=== PATIENT | female | born 1985 | race Hispanic/Latino ===

== ENCOUNTER 2017-12-02 20:45 | Emergency (ER) | payer MEDICAID, OTHER ==
[~2017-12-02 20:45] MED LIST: METHY250 PO
[2017-12-02 21:20] LABS: APPEARANCE,URINE Clear (CLEAR); BILIRUBIN,URINE Negative (NEGATIVE); COLOR,URINE Yellow (YELLOW); GLUCOSE, URINE (UA) Negative (NEGATIVE); KETONES,URINE Trace mg/dL (NEGATIVE); LEUKOCYTE ESTERASE ,URINE Large (NEGATIVE); NITRATE,URINE Negative (NEGATIVE); OCCULT BLOOD,URINE Trace (NEGATIVE); PH,URINE 7.5 (5.0-8.0); PROTEIN,URINE Negative (NEGATIVE); UROBILINOGEN,URINE 0.2 mg/dL (0.2-1.0)
[2017-12-02 21:21] LABS: BASOPHILS % (AUTO) 1.2 % (0.0-5.0); EOSINOPHILS % (AUTO) 1.4 % (0.0-8.0); HEMATOCRIT 35.7 % (36-48); LYMPHOCYTES % (AUTO) 24.6 % (21.0-51.0); MEAN CORPUSCULAR HEMOGLOBIN 23.9 pg (27.0-33.0); MEAN CORPUSCULAR HGB CONC 32.8 g/dL (32.0-36.0); MONOCYTES % (AUTO) 4.9 % (3.0-13.0); NEUTROPHILS % (AUTO) 67.9 % (40.0-77.0); PLATELET COUNT (AUTO) 302 K/uL (130-400); RED BLOOD CELL COUNT(AUTO) 4.89 MIL/uL (4.00-5.50); RED CELL DISTRIBUTION WIDTH 17.4 % (11.0-15.5); WHITE BLOOD COUNT (AUTO) 7.9 K/uL (4.8-10.8)
[2017-12-02 21:29] LABS: HCG,QUAL RESULT NEGATIVE (NEGATIVE)
[2017-12-02] MEDS ORDERED: HYDRALAZINE HCL 20 MG/ML VIAL ONE (21:31)
[2017-12-02 21:41] LABS: ALBUMIN 3.9 g/dL (3.5-5.0); BILIRUBIN,TOTAL 0.4 mg/dL (0.2-1.0); CREATININE 0.8 mg/dL (0.5-1.5); TOTAL PROTEIN, SERUM 7.6 g/dL (6.0-8.3)
[2017-12-02 21:53] LABS: POTASSIUM 2.8 mmol/L (3.5-5.1)
[2017-12-02 21:58] LABS: BACTERIA,URINE Rare /HPF (None Seen); RBC,URINE 0-1 /HPF (0-1)
[2017-12-02] MEDS ORDERED: LISINOPRIL 5 MG TABLET ONE (22:05)
[2017-12-02] MEDS ORDERED: AMLODIPINE BESYLATE 5 MG TAB PO ONE (22:05)
[2017-12-02] MEDS ORDERED: POTASSIUM BICARB/CIT AC 25 MEQ TABLET.EFF ONE (22:15)
== END 2017-12-03 00:22 | disposition home or self-care (01) ==
LOC: EDH 20:45
DX: I16.0 Hypertensive urgency (principal); E87.6 Hypokalemia; Z91.19 Patient's noncompliance with other medical treatment and regimen
CPT/HCPCS: 36415; 71045; 80053; 81001; 81025; 82550; 83735; 84484; 85025; 93005; 96374; 99285; J0360

== ENCOUNTER 2018-07-26 05:25 | Observation (INO) | payer MEDICAID ==
[2018-07-25 13:34] VITALS: BP 143/87
[2018-07-25 13:41] LABS: BASOPHILS % (AUTO) 0.9 % (0.0-5.0); EOSINOPHILS % (AUTO) 1.2 % (0.0-8.0); HEMATOCRIT 40.7 % (36-48); LYMPHOCYTES % (AUTO) 28.3 % (21.0-51.0); MEAN CORPUSCULAR HEMOGLOBIN 27.6 pg (27.0-33.0); MEAN CORPUSCULAR HGB CONC 32.9 g/dL (32.0-36.0); MEAN CORPUSCULAR VOLUME 83.9 fL (79-99); MONOCYTES % (AUTO) 5.2 % (3.0-13.0); NEUTROPHILS % (AUTO) 64.4 % (40.0-77.0); PLATELET COUNT (AUTO) 274 K/uL (130-400); RED BLOOD CELL COUNT(AUTO) 4.85 MIL/uL (4.00-5.50); RED CELL DISTRIBUTION WIDTH 14.9 % (11.0-15.5); WHITE BLOOD COUNT (AUTO) 8.9 K/uL (4.8-10.8)
[2018-07-26] VITALS (20 sets, daily range): BP systolic 119–163; BP diastolic 70–106
[~2018-07-26] VITALS: Ht 157.5 cm; Wt 108.6 kg
[2018-07-26] MEDS: CEFAZOLIN SODIUM 1 GM VIAL IVP SCH ×2 (05:00→07:20)
[~2018-07-26 05:25] MED LIST changes: +AMLO-128 PO; +CHLO25TA3 PO; +CHOL50004 PO; +DOCU100T PO; -METHY250 PO; +[UNRECOGNIZED DRUG - OTHER] PO
[2018-07-26] MEDS ORDERED: LACTATED RINGERS 1000ML 1,000 ML IV ONE (06:18)
[2018-07-26] MEDS ORDERED: FAMOTIDINE/PF 20 MG/2 ML VIAL IV ONE (06:34)
[2018-07-26] MEDS ORDERED: PROPOFOL 10 MG/ML 20ML VIAL IV ONE (06:36)
[2018-07-26] MEDS ORDERED: DEXAMETHASONE SOD PHOSPHATE 10MG/ML 1ML VIAL ONE (06:36)
[2018-07-26] MEDS ORDERED: ROCURONIUM 10MG/1ML SYR 10 MG/ML ML ONE (06:36)
[2018-07-26] MEDS ORDERED: NEOSTIGMINE 5MG/5ML SYR IV ONE (06:36)
[2018-07-26] MEDS ORDERED: LIDOCAINE PF 2% 5ML ABBOJECT ONE (06:36)
[2018-07-26] MEDS ORDERED: GLYCOPYRROLATE 1 MG/5 ML SYRINGE ONE (06:36)
[2018-07-26] MEDS ORDERED: ONDANSETRON HCL 4 MG/2 ML VIAL ONE (06:36)
[2018-07-26] MEDS ORDERED: MIDAZOLAM HCL 1 MG/ML 2ML VIAL ONE (06:36)
[2018-07-26] MEDS ORDERED: FENTANYL CITRATE PF 50 MCG/1 ML 2ML VIAL ONE (06:37)
[2018-07-26] MEDS ORDERED: MEPERIDINE-PF 25 MG/ML SYG ONE ×2 (08:44→08:56)
[2018-07-26] MEDS ORDERED: PROMETHAZINE HCL 25 MG/ML 1ML AMPULE IM ONE (08:56)
[2018-07-26] MEDS ORDERED: IBUPROFEN 600 MG TABLET PO PRN (10:00)
[2018-07-26] MEDS ORDERED: BISACODYL 10 MG SUPP.RECT RC PRN (10:00)
[2018-07-26] MEDS ORDERED: DOCUSATE SODIUM 100 MG CAP PO PRN (10:00)
[2018-07-26] MEDS ORDERED: PROMETHAZINE HCL 25 MG/ML 1ML AMPULE IM PRN (10:00)
[2018-07-26] MEDS ORDERED: SIMETHICONE 80 MG TAB.CHEW PO PRN (10:00)
[2018-07-26] MEDS: DEXTROSE 5 %-0.45 % NACL 1,000 ML IV PRN ×2 (10:06→17:45)
[2018-07-26] MEDS: PROMETHAZINE HCL 25 MG/ML 1ML AMPULE IM PRN ×2 (10:21→14:22)
[2018-07-26] MEDS: MEPERIDINE-PF 75 MG/ML SYG IM PRN ×2 (10:21→14:22)
[2018-07-26] MEDS: ACETAMINOPHEN-CODEINE 300/30MG TAB PO PRN ×2 (12:40→17:38)
[2018-07-27] MEDS: DEXTROSE 5 %-0.45 % NACL 1,000 ML IV PRN (00:48)
[2018-07-27 01:18] VITALS: BP 130/81
[2018-07-27 04:25] VITALS: BP 117/67
[2018-07-27] MEDS: ACETAMINOPHEN-CODEINE 300/30MG TAB PO PRN (04:58)
[2018-07-27 05:25] LABS: HEMATOCRIT 40.4 % (36-48); MEAN CORPUSCULAR HEMOGLOBIN 27.9 pg (27.0-33.0); MEAN CORPUSCULAR HGB CONC 33.1 g/dL (32.0-36.0); MEAN CORPUSCULAR VOLUME 84.2 fL (79-99); PLATELET COUNT (AUTO) 260 K/uL (130-400); RED CELL DISTRIBUTION WIDTH 14.9 % (11.0-15.5)
[2018-07-27 08:07] VITALS: BP 146/90
[2018-07-27 11:52] VITALS: BP 142/78
== END 2018-07-27 13:50 | disposition home or self-care (01) ==
LOC: DAH 05:25 → WSH 05:26
PROVIDERS: ADMIT Obstetrics & Gynecology; ATTEND Obstetrics & Gynecology
DX: N92.1 Excessive and frequent menstruation with irregular cycle (principal); D25.9 Leiomyoma of uterus, unspecified; D64.9 Anemia, unspecified; E66.9 Obesity, unspecified; N83.202 Unspecified ovarian cyst, left side; N89.5 Stricture and atresia of vagina
CPT/HCPCS: 36415 ×2; 58291; 58294; 84702; 85025; 85027; 86850; 86900; 86901; 88305; 88307; 96372 ×2; A4218; A4351; A4510; A4600; A4606; A4930; G0378 ×32; J0690; J1100; J2001; J2175 ×4; J2250; J2405; J2550 ×3; J2704; J2710; J3010; J3490 ×2; J7030; J7120

== ENCOUNTER 2021-01-28 20:40 | Emergency (ER) | payer MEDICAID ==
[~2021-01-28 20:40] MED LIST changes: -AMLO-128 PO; +AMLO-97 PO
[2021-01-28] MEDS ORDERED: ACETAMINOPHEN EXTRA STRENGTH 500 MG TABLET ONE (21:05)
[2021-01-28] MEDS ORDERED: CLINDAMYCIN HCL 150 MG CAP ONE (21:05)
== END 2021-01-28 21:12 | disposition home or self-care (01) ==
LOC: EDH 20:40
DX: B00.2 Herpesviral gingivostomatitis and pharyngotonsillitis (principal); K05.10 Chronic gingivitis, plaque induced; I10 Essential (primary) hypertension; Z90.710 Acquired absence of both cervix and uterus; Z79.899 Other long term (current) drug therapy

== ENCOUNTER 2022-02-14 11:35 | Emergency (ER) | payer MEDICAID ==
[~2022-02-14] VITALS: Ht 157.5 cm; Wt 111.1 kg
[~2022-02-14 11:35] MED LIST changes: +AMLO-142 PO; -AMLO-97 PO
[2022-02-14 12:28] LABS: EOSINOPHILS % (AUTO) 0.4 % (0.0-8.0); HEMATOCRIT 41.3 % (36-48); LYMPHOCYTES % (AUTO) 14.4 % (21.0-51.0); MEAN CORPUSCULAR HEMOGLOBIN 28.5 pg (27.0-33.0); MEAN CORPUSCULAR HGB CONC 33.9 g/dL (32.0-36.0); MEAN CORPUSCULAR VOLUME 83.9 fL (79-99); PLATELET COUNT (AUTO) 236 K/uL (130-400); RED BLOOD CELL COUNT(AUTO) 4.92 MIL/uL (4.00-5.50); RED CELL DISTRIBUTION WIDTH 12.6 % (11.0-15.5); WHITE BLOOD COUNT (AUTO) 5.1 K/uL (4.8-10.8)
[2022-02-14] MEDS ORDERED: DiphenhydrAMINE HCL 50 MG/ML VIAL IV ONE (12:30)
[2022-02-14] MEDS ORDERED: PROCHLORPERAZINE EDISYLATE 5 MG/ML 2 ML VIAL IVP ONE (12:30)
[2022-02-14] MEDS ORDERED: 0.9%NACL 1000ML 1,000 ML IV ONE (12:30)
[2022-02-14] MEDS ORDERED: PROCHLORPERAZINE 10MG/2ML INJ ONE (12:38)
[2022-02-14 12:47] LABS: ALBUMIN 4.2 g/dL (3.5-5.0); BILIRUBIN,TOTAL 0.3 mg/dL (0.2-1.0); CREATININE 0.8 mg/dL (0.5-1.5)
[2022-02-14 12:54] LABS: POTASSIUM 2.5 mmol/L (3.5-5.1)
[2022-02-14 13:19] LABS: APPEARANCE,URINE Clear (CLEAR); BILIRUBIN,URINE Negative (NEGATIVE); COLOR,URINE Yellow (YELLOW); GLUCOSE, URINE (UA) Negative (NEGATIVE); KETONES,URINE Negative (NEGATIVE); LEUKOCYTE ESTERASE ,URINE Negative (NEGATIVE); NITRATE,URINE Negative (NEGATIVE); OCCULT BLOOD,URINE Negative (NEGATIVE); PH,URINE 7.5 (5.0-8.0); PROTEIN,URINE Negative (NEGATIVE); UROBILINOGEN,URINE 0.2 mg/dL (0.2-1.0)
[2022-02-14 13:23] LABS: HCG,QUAL RESULT NEGATIVE (NEGATIVE)
[2022-02-14] MEDS ORDERED: POTASSIUM BICARB/CIT AC 25 MEQ TABLET.EFF ONE (13:27)
[2022-02-14] MEDS ORDERED: POTASSIUM BICARB/CIT AC 25 MEQ TABLET.EFF PO ONE (13:30)
[2022-02-14 14:17] VITALS: BP 126/77
== END 2022-02-14 14:25 | disposition home or self-care (01) ==
LOC: EDH 11:35
DX: G43.909 Migraine, unspecified, not intractable, without status migrainosus (principal); E87.6 Hypokalemia; I10 Essential (primary) hypertension; Z98.890 Other specified postprocedural states; Z79.899 Other long term (current) drug therapy
CPT/HCPCS: 36415; 80053; 81003; 81025; 83735; 85025; 96361; 96374; 96375; 99284; J0780; J1200; J7030

== ENCOUNTER 2025-08-26 16:28 | Emergency (ER) | payer SELFPAY ==
[~2025-08-26] VITALS: Ht 160 cm; Wt 97.5 kg
[~2025-08-26 16:28] MED LIST changes: +AMLO1CAP87 PO
[2025-08-26] MEDS ORDERED: AMOX1TAB16 PO (17:32)
--- NOTE | 2025-08-26 17:33 | ERN ---
ED Note History of Present Illness Stated Complaint: RT DENTAL PAIN Chief Complaint: Tooth Ache/Pain Time Seen by MD: 16:34 Time Seen by Midlevel: 16:36 Dictation: 40-year-old female coming in with complaints of right lower and upper molar pain. Patient states it has been going on for the last couple of months however the last two weeks patient states the pain is worse. Denies fever, nausea and vomiting. Allergies: Coded Allergies: No Known Drug Allergies (Unverified Allergy, Unknown, 06/08/17) Home Meds Active Scripts Amlodipine Besylate/Benazepril (Amlodipine-Benazepril 2.5-10) 2.5 Mg-10 Mg Capsule, 1 CAP PO DAILY for 30 Days, #30 CAP 0 Refills Prov:CARLOS VALERA 09/04/24 Reported Medications [Herbal Life Line] No Conflict Check, 1 TAB PO HS 07/25/18 [Herbal Life Line] No Conflict Check, 2 TAB PO DAILY 07/25/18 Docusate Sodium (Docusate Sodium) 100 Mg Tablet, 100 MG PO DAILY, TAB 07/25/18 Amlodipine Besylate/Benazepril (Amlodipine-Benazepril 10-40 mg) 1 Each Capsule, 1 EACH PO DAILY, CAP 07/25/18 Cholecalciferol (Vitamin D3) 5,000 Unit Capsule, 5000 UNIT PO NOON, CAP 07/25/18 Chlorthalidone (Chlorthalidone) 25 Mg Tablet, 25 MG PO NOON, TAB 07/25/18 Past Medical History Past Medical History: Hypertension Surgical History: Hysterectomy Review of System Dictation Constitutional: Negative for fever,chills, and weight loss Eyes: Negative for injury, pain,redness, and discharge ENT: Negative for injury,pain or swelling complaining of right upper and lower molar pain Cardiovascular: Negative for chest pain, palpitations, and edema Respiratory: Negative for shortness of breath, cough, and wheezing, Abdomen/GI: Negative for abdominal pain, nausea, vomiting, diarrhea, and constipation Back: Negative for injury and pain : Negative for injury, bleeding and discharge MS/Extremity: Negative for injury and deformity Skin: Negative for rash, and discoloration Neuro: Negative for headache, weakness, numbness, tingling, and seizure Psych: Negative for suicide ideation, homicidal ideation, and hallucinations Review of Systems: was completed Initial Vital Sign VS Vital Signs Date Time Temp Pulse Resp B/P (MAP) Pulse Ox O2 Delivery O2 Flow Rate FiO2 08/26/25 16:32 98.4 88 18 265/146 99 Room Air 0 Physical Exam Dictation General: awake, alert, NAD Head/Face: Normocephalic, atraumatic Eyes: PERRL, EOMI, vision at baseline ENT: oral cavity clear, TMs clear, no signs of infection, there is severe tooth take on the right 2nd to the last molar has been with cracked to no obvious signs of any tooth avulsion or abscess. Old filings noted Neck: Trachea midline, supple, no nuchal rigidity Cardiovascular: RRR, normal S1/S2, No MRGs, no JVD Respiratory: CTAB, no respiratory distress, No rales or wheezes Abdomen: Soft, non-tender, non-distended, normal bowel sounds, no guarding or rebound. Skin: Warm, dry, normal turgor, no rash MS/Extremity: Pulses equal, no cyanosis, neurovascular intact, FROM Neuro: COAx4, GCS 15, strength 5/5, CN 2-12 intact, normal cerebellar exam, normal gait, Psych: Normal behavior, mood, and affect normal ED Course ED Course Orders Procedure Category Date Status Time Hydrocodone/Apap PHA 08/26/25 Complete 5/325 ([place] 5/325mg) 17:00 Ketorolac PHA 08/26/25 Complete Tromethamine 30mg/Ml 17:00 Current Medications Medications (Trade) Dose Ordered Sig/Sammie Route PRN Reason Start Time Stop Time Status Last Admin Dose Admin Acetaminophen/ Hydrocodone Bitart (NORco 5/325MG) 1 tab ONCE ONCE PO 08/26/25 17:00 08/26/25 17:01 DC Ketorolac Tromethamine (toRADol) 30 mg ONCE ONCE IM 08/26/25 17:00 08/26/25 17:01 DC Vital Signs Date Time Temp Pulse Resp B/P (MAP) Pulse Ox O2 Delivery O2 Flow Rate FiO2 08/26/25 16:32 98.4 88 18 265/146 99 Room Air 0 Medical Decision Making MDM MDM: 40-year-old female coming in with complaints of right lower and upper molar pain. Patient states it has been going on for the last couple of months however the last two weeks patient states the pain is worse. Denies fever, nausea and vomiting. We will receive pain medication here in the emergency room. Educated patient that we will discharge him with the antibiotics but she needs to follow up with a dentist for further evaluation. Patient verbalized understanding, answered all questions. Differential diagnosis: Pupils okay, tooth avulsion, tooth abscess Rationale: Tests considered and ordered secondary to shared decision making include: Previous outside records reviewed: Old ER visits. Risk of complication and/or morbidity or mortality of patient management: None Medications-Per medication reconciliation Need for hospitalization: Patient does not meet criteria for hospitalization. Need for emergency major/minor surgery: No There are no social concerns with this patient. Prescription drug management Prescriptions will include symptomatic care Patient's prior external medical records from other ER visits were reviewed by me as indicated. Prior testing and results from previous visits were reviewed. Prior tests were taken into account with medical decision making and resource utilization, independent historian/historians were used to obtain complete medical history. I independently interpreted the test that were performed, results were reviewed by me and considered findings on radiology if ordered. Medical management and examination interpretation discussions were had by me with other qualified healthcare professionals as indicated for the patient's care. DX & DISP Disposition: Discharge Departure Impression: Primary Impression: Dental infection Condition: Stable Scripts Amoxicillin/Potassium Clav (Amox Tr-K Clv 875-125 mg Tab) 875 Mg-125 Mg Tablet 1 EACH PO BID for 5 Days, #10 TAB 0 Refills Prov: KATHE PINON CNP 08/26/25 Additional Instructions: You can take [id number] Tylenol and Motrin for pain control. Make an appointment with the dentist has been might need further evaluation and intervention. Return to the hospital if you develop any fever nausea vomiting or diarrhea. Referrals: SELF,REFERRAL (PCP) Time of Disposition: 17:32 I have reviewed the case, and I agree with, Diagnosis and Plan KATHE PINON CNP Aug 26, 2025 17:33
[2025-08-26] MEDS: HYDROcodone/APAP 5/325 1 TAB TABLET PO ONE (18:12)
--- NOTE | 2025-08-26 21:29 | NUR ---
BP 154/104
[2025-08-26 21:35] VITALS: BP 153/99; PULSE 82; RESP 16; TEMP 98.6; O2SAT 99
== END 2025-08-26 21:36 | disposition home or self-care (01) ==
LOC: EDH 16:28
DX: K04.7 Periapical abscess without sinus (principal); I10 Essential (primary) hypertension; Z79.899 Other long term (current) drug therapy; Z90.710 Acquired absence of both cervix and uterus
CPT/HCPCS: 99285; 96372; J1885